=== PATIENT | male | born 1960 | race Caucasian/White ===

== ENCOUNTER 2021-10-22 12:37 | Emergency (ER) | payer BC ==
--- OUTSIDE RECORDS SUMMARY | 2021-10-22 12:42 | XMS REPORT | Continuity of Care Document ---
:1960 Author Organization [facility] t Address [address] [place] [address] Care Team Providers Name Role Phone Pcp, Does Not Have A Primary Care Physician HUNDL Attending Clinician Unavailable ROBBY TREJO Attending Clinician Unavailable Jerzy BATES, T Attending Clinician Unavailable Only, Db Test Attending Clinician Unavailable Anita ENZYME CHEMIST Attending Clinician Doctor Unassigned, Name Attending Clinician Unavailable LAB90 Attending Clinician Unavailable Robby Trejo MD Attending Clinician Ritesh LOOMIS Attending Clinician Payers Payer Name Policy Type Policy Number Effective Date Expiration Date S kati [facility] 2 [id number] 2018 00:00:00 Problems Condition Condition Condition Status Onset Resolution Last Treating Co mments Source Name Details Category Date Date Treatment Clinician Date No known No known Disease Kelse y active active Seybold problems problems Allergies, Adverse Reactions, Alerts Allergy Allergy Status Severity Reaction(s) Onset Inactive Treating Comm ents Source Name Type Date Date Clinician NO KNOWN Drug Active Univers ALLERGIE Class ity of [facility] Social History Social Habit Start Date Stop Date Quantity Comments Source Exposure to Not sure [facility]-CoV-[address] [facility] [place] [place] ([facility]) [place] Tobacco use and 2021-04-14 2021-04-14 User of smokeless Ke lsey Seybold exposure 00:00:00 00:00:00 tobacco Sex [birth year] At [birth year] Hilaria Dominguez ybold 00:00:00 00:00:00 Smoking Status Start Date Stop Date Source Unknown if ever smoked [facility] Never smoked tobacco Hilaria Cloud old Medications Ordered Filled Start Stop Current Ordering Indication Dosage Frequency Signature Comments Components Source Medication Medication Date Date Medication? Clinician (SIG) Name Name Tadalafil 2020-10 20mg Q24H Take 20 mg K elsey (Cialis) 20 1-17 11-17 by mouth Sey bold MG oral 08:28: 00:00 daily as Tablet 56 :00 needed for erectile dysfunctio n Sildenafil 2020-10 No 100mg Q24H Take 100 K elsey Citrate 1-17 11-17 mg by Seybold (Viagra) 08:28: 00:00 mouth 100 MG oral 56 :00 daily as Tablet needed for erectile dysfunctio n Sildenafil 2020-10 Yes [id number] 100mg Q24H Take 1 Hilaria Citrate 1-17 tablet Seybold (Viagra) 00:00: (100 mg 100 MG oral 00 total) by Tablet mouth daily as needed for erectile dysfunctio n Tadalafil 2020-10 Yes [id number] 20mg Q24H Take 1 K elsey (Cialis) 20 1-17 tablet (20 Se ybold MG oral 00:00: mg total) Tablet 00 by mouth daily as needed for erectile dysfunctio n Naproxen Yes 500mg Take 1 Hilaria 500 MG oral 7-27 tablet Seybol d Tablet 00:00: (500 mg 00 total) by mouth 2 times daily (with meals) HYDROcodone Yes [id number] 1{tbl} Q24H Take 1 Hilaria -Acetaminop 7-16 [id number] tablet by Clarence castillo hen 7.5-325 00:00: mouth MG oral 00 daily as Tablet needed for pain Zolpidem Yes [id number] 10mg QD Take 1 Ke lsey Tartrate 7-12 tablet (10 Seybo ld (Ambien) 10 00:00: mg total) MG oral 00 by mouth Tablet nightly as needed for sleep ondansetron Yes [id number] 4mg Take 1 Univers 4 mg 7- [id number] tablet by ity of disintegrat 00:00: mouth [place] ing tablet 00 every 4 Medica l (four) Branch hours as needed for Nausea and Vomiting (N/V). ondansetron Yes [id number] 4mg Take 1 Univers 4 mg 7- [id number] tablet by ity of disintegrat 00:00: mouth [place] ing tablet 00 every 4 Medica l (four) Branch hours as needed for Nausea and Vomiting (N/V). ondansetron Yes [id number] 4mg Take 1 Univers 4 mg - [id number] tablet by ity of disintegrat 00:00: mouth [place] ing tablet 00 every 4 Medica l (four) Branch hours as needed for Nausea and Vomiting (N/V). ondansetron Yes [id number] 4mg Take 1 Univers 4 mg 7- [id number] tablet by ity of disintegrat 00:00: mouth [place] ing tablet 00 every 4 Medica l (four) Branch hours as needed for Nausea and Vomiting (N/V). ondansetron Yes [id number] 4mg Take 1 Univers 4 mg 7- [id number] tablet by ity of disintegrat 00:00: mouth [place] ing tablet 00 every 4 Medica l (four) Branch hours as needed for Nausea and Vomiting (N/V). Ondansetron Yes 4mg Q4H Take 4 mg K elsey (ZOFRAN) 4 - by mouth Seybo ld MG oral 00:00: every 4 TABLET 00 hours as DISPERSIBLE needed Ondansetron Yes Hilaria (ZOFRAN) 4 7-07 Seybold MG oral 00:00: TABLET 00 DISPERSIBLE HYDROcodone 2020- No [id number] 1{tbl} Take 1 U nivers -acetaminop 04-0915 tablet by it y of hen (NORCO) 00:00: 04:59 [place] 7.5-325 mg 00 :00 every 8 Medica l per tablet (eight) Branch hours as needed for Pain for up to 7 days. Indication s: acute pain Immunizations Ordered Immunization Filled Immunization Date Status Commen ts Source Name Name Influenza Virus 2021-08-20 Completed Hilaria Se ybold Vaccine, age 6 months 00:00:00 and up Influenza Virus 2020-07-24 Completed Hilaria Dominguez ybold Vaccine, age 6 months 00:00:00 and up Pneumococcal Vaccine, 2020-07-24 Completed Marshall dominguezy Seybold Polysaccharide 00:00:00 Influenza Virus 2019-07-27 Completed Hilaria Dominguez ybold Vaccine, age 6 months 00:00:00 and up Tdap- (Boostrix, 2018-07-25 Completed Hilaria schneiderbold Adacel) 00:00:00 Influenza Virus 2018-07-25 Completed Hilaria Dominguez ybold Vaccine, age 6 months 00:00:00 and up Tdap- (Boostrix, 2017-07-20 Completed Hilaria schneiderbold Adacel) 00:00:00 Influenza Virus 2017-07-20 Completed Hilaria corea Vaccine, age 6 months 00:00:00 and up Vital Signs Vital Name Observation Time Observation Value Comments Source Systolic blood 2021-08-20 13:52:00 116 mm[Hg] Hilaria Seybold pressure Diastolic blood 2021-08-20 13:52:00 68 mm[Hg] Kelse y Seybold pressure Heart rate 2021-08-20 13:52:00 71 /min Hilaria schneiderboqiana Body temperature 2021-08-20 13:52:00 36.5 Tiffanie Rebeka ey Seybold Respiratory rate 2021-08-20 13:52:00 16 /min Rebeka schneider Seybold Body height 2021-08-20 13:52:00 185.4 cm Hilaria schneiderboqiana Body weight 2021-08-20 13:52:00 117.935 kg Hilaria schneiderbold BMI 2021-08-20 13:52:00 34.30 kg/m2 Hilaria schneiderbold Systolic blood 2021-04-09 13:32:00 152 mm[Hg] [facility] Diastolic blood 2021-04-09 13:32:00 86 mm[Hg] [facility] Heart rate 2021-04-09 13:32:00 63 /min [facility] Body temperature 2021-04-09 13:32:00 37 [facility]anie [facility] Respiratory rate 2021-04-09 13:32:00 14 /min [facility] Body height 2021-04-09 13:32:00 182.9 cm [facility] Body weight 2021-04-09 13:32:00 122.471 kg [facility] BMI 2021-04-09 13:32:00 36.62 kg/m2 [facility] Oxygen saturation in 2021-04-09 13:32:00 96 /min [facility] Arterial blood by [facility] Pulse oximetry [place] Procedures Procedure Date / Time Performed Performing Clinician Thanh e XR CHEST 2 VW 2021-04-09 13:56:29 Keith Awad [place] o f [facility] XR RIBS <3 VW RIGHT 2021-04-09 13:56:29 Keith Awad [facility] Encounters Start End Encounter Admission Attending Care Care Encounter Source Date/Time Date/Time Type Type Clinicians Facility Department ID 2021-10-22 2021-10-22 Outpatient HILARIA LARIOS [id number] [place] 11:00:00 11:00:00 RON parmar 2021-10-17 2021-10-17 Outpatient HILARIA TREJO [id number] [place] 00:00:00 00:00:00 FELICITAS parmar 2021-10-17 2021-10-17 Outpatient HILARIA TREJO [id number] [place] 00:00:00 00:00:00 FELICITAS parmar 2021-10-16 2021-10-16 Outpatient HILARIA TREJO [id number] [place] 00:00:00 00:00:00 FELICITAS parmar 2021-10-15 2021-10-15 Outpatient HILARIA TREJO [id number] [place] 00:00:00 00:00:00 FELICITAS parmar 2021-10-15 2021-10-15 Letter NICANOR Bertrand [id number] [facility] 00:00:00 00:00:00 (Out) Melba ORTA [id number] [facility] [id number] Jayden as [id number] [address] 2021-10-14 2021-10-14 Outpatient HILARIA TREJO [id number] [place] 00:00:00 00:00:00 FELICITAS parmar 2021-10-13 2021-10-13 Laboratory Only, Ang Db Test [facility] [id number] [facility] 15:15:00 15:30:00 Only [facility] [id number] ity of [place] [id number] Jayden as [place] [id number] [address] MEDICAL OFFICE BUILDING 2021-10-13 2021-10-13 Letter Doctor NICANOR [id number] Univers 00:00:00 00:00:00 (Out) Unassigned, YOU [id number] ity of [facility] [id number] Jayden as [phone] [address] 2021-10-13 2021-10-13 Letter Doctor NICANOR [id number] Univers 00:00:00 00:00:00 (Out) Unassigned, YOU [id number] ity of [facility] [id number] Jayden as [phone] [address] 2021-08-20 2021-08-20 Outpatient LAB90 HILARIA WEINER [id number] [place] 08:45:00 08:45:00 Pedro Luisol ghulam 2021-08-20 2021-08-20 Office Alfredito Trejo [id number] [place] 07:51:44 08:21:44 Visit Felicitas Light [id number] Se nahomy Duobn [id number] 2021-08-15 2021-08-15 Outpatient HILARIA TREJO [id number] [place] 09:00:00 09:00:00 FELICITAS Cloudol ghulam 2021-04-28 2021-04-28 Outpatient HILARIA TREJO [id number] [place] 00:00:00 00:00:00 FELICITAS Dominguezybol hgulam 2021-04-24 2021-04-24 Outpatient MAYA, HILARIA WEINER [id number] [place] 00:00:00 00:00:00 FELICITAS Clark ghulam 2021-04-17 2021-04-17 Outpatient MAYA, HILARIA WEINER [id number] [place] 00:00:00 00:00:00 FELICITAS Clark ghulam 2021-04-14 2021-04-14 Outpatient HILARIA TREJO [id number] [place] 13:45:00 13:45:00 FELICITAS Clark ghulam 2021-04-09 2021-04-09 Emergency Awad, [facility] [id number] Univers 08:33:00 10:01:00 Keith Floreston [id number] i ty of [place] [id number] [facility] [id number] Medi makenzie 084 Branch 2021-04-09 2021-04-09 Emergency X [facility] ERT [id number] Univers 08:27:00 08:27:00 ity of [facility] Results Test Description Test Time Test Comments Results Result Sour e Comments XR RIBS <3 VW Acute minimally Unive rsity of RIGHT [address] [facility] [place] 14:21:13 of lateral right Branch rib 6. No pneumothorax.EXAM: XR CHEST 2 VW, XR RIBS <3 VW RIGHT COMPARISON: None available. HISTORY: rib pain FINDINGS: Support devices: None. Lungs/pleura: ?The lungs are clear. No pleural effusion or pneumothorax isidentified. Heart/Mediastinum: The cardiac silhouette is normal in size. Trachea isnear midline. Bones: Acute minimally displaced fracture of lateral right rib 6. [facility], Radiant Results Inft User - 04/09/2021 9:22 AM CDT EXAM: XR CHEST 2 VW, XR RIBS <3 VW RIGHTCOMPARISON: None available.HISTORY: rib pain FINDINGS:Support devices: None.Lungs/pleura: The lungs are clear. No pleural effusion or pneumothorax isidentified.Heart /Mediastinum: The cardiac silhouette is normal in size. Trachea isnear midline.Bones: Acute minimally displaced fracture of lateral right rib 6.IMPRESSIONAcute minimally displaced fracture of lateral right rib 6. No pneumothorax. XR CHEST 2 VW Acute minimally Unive rsity of [address] [facility] [place] 14:21:13 of lateral right Branch rib 6. No pneumothorax.EXAM: XR CHEST 2 VW, XR RIBS <3 VW RIGHT COMPARISON: None available. HISTORY: rib pain FINDINGS: Support devices: None. Lungs/pleura: ?The lungs are clear. No pleural effusion or pneumothorax isidentified. Heart/Mediastinum: The cardiac silhouette is normal in size. Trachea isnear midline. Bones: Acute minimally displaced fracture of lateral right rib 6. [facility], Radiant Results Inft User - 04/09/2021 9:22 AM CDT EXAM: XR CHEST 2 VW, XR RIBS <3 VW RIGHTCOMPARISON: None available.HISTORY: rib pain FINDINGS:Support devices: None.Lungs/pleura: The lungs are clear. No pleural effusion or pneumothorax isidentified.Heart /Mediastinum: The cardiac silhouette is normal in size. Trachea isnear midline.Bones: Acute minimally displaced fracture of lateral right rib 6.IMPRESSIONAcute minimally displaced fracture of lateral right rib 6. No pneumothorax.
[2021-10-22 14:38] LABS: Urine Blood Negative (Negative); Urine Glucose Negative (Negative); Urine Protein Negative (Negative)
[2021-10-22 14:46] LABS: Absolute Lymphocytes (CBC) 0.7 K/uL (0.7-4.9); Hematocrit 46.9 % (39.6-49.0); Lymphocytes % 15.9 % (15.3-44.8); MPV 7.4 fL (7.6-11.3); RBC Red Blood Cell Count 5.17 M/uL (4.33-5.43)
[2021-10-22 14:52] LABS: Protime INR 1.05
[2021-10-22 14:58] LABS: Urine Bacteria <20 /HPF (NONE SEEN); Urine RBC <5 /HPF (NONE SEEN)
--- NOTE | 2021-10-22 14:59 | RAD REPORT ---
EXAM DESCRIPTION: RAD - Chest Single View - 10/22/2021 2:39 pm CLINICAL HISTORY: SOB Chest pain. COMPARISON: Chest Pa And Lat (2 Views) dated 01/31/2016; CHEST PA AND LAT 2 VIEW dated 01/02/2014 FINDINGS: Portable technique limits examination quality. Mild to moderate bilateral interstitial lung opacities are present likely representing a viral infect ion. The heart is normal in size. No displaced fractures.
[2021-10-22 15:09] LABS: ALT/SGPT 116 U/L (12-78); AST/SGOT 62 U/L (15-37); Albumin 2.7 g/dL (3.4-5.0); Alkaline Phosphatase 140 U/L (45-117); BUN Blood Urea Nitrogen 7 mg/dL (7-18); Bicarbonate 28 mmol/L (21-32); Bilirubin Direct 0.3 mg/dL (0-0.2); Bilirubin Total 0.7 mg/dL (0.2-1.0); Glucose Level 121 mg/dL (74-106); Magnesium 2.2 mg/dL (1.8-2.4); NT PRO-BNP 90 pg/mL (<125); Potassium 3.5 mmol/L (3.5-5.1); Protein, Total 6.7 g/dL (6.4-8.2); Sodium Level 135 mmol/L (136-145)
--- NOTE | 2021-10-22 16:20 | RAD REPORT ---
EXAM DESCRIPTION: CT - Chest For Pe Angio - 10/22/2021 3:57 pm CLINICAL HISTORY: Chest pain. SOB COMPARISON: No comparisons TECHNIQUE: CT angiogram of the pulmonary arteries was performed with MIP. All CT scans are performed using dose optimization technique as appropriate and may include automated exposure control or mA/KV adjustment according to patient size. FINDINGS: No evidence of pulmonary thromboembolism. No acute aortic finding demonstrated. Ground-glass opacity is present in both lungs greatest in the periphery and lower lobes likely repres enting viral infection. No significant pericardial or pleural fluid. Old right lateral rib fractures are present. IMPRESSION: No evidence of pulmonary thromboembolism. Mild ground-glass opacities in the periphery of both lungs and greatest in the lower lobes likely rep resents a viral infection.
--- NOTE | 2021-10-22 16:50 | EDPHYS ---
Physician Documentation [facility] Name: Wilder Chavez Age: 60 yrs Sex: Male : 1960 Arrival Date: 10/22/2021 Time: 12:41 Bed 20 Private MD: ED Physician Chance Garcia HPI: 10/22 14:30 This 60 yrs old Male presents to ER via Wheelchair with complaints of Covid + Sob. cp 14:30 The patient has shortness of breath with light activity. cp 14:30 Onset: The symptoms/episode began/occurred gradually. Duration: The symptoms are cp continuous, and are steadily getting worse. Associated signs and symptoms: Pertinent positives: cough. Severity of symptoms: in the emergency department the symptoms are unchanged despite home interventions. Patient reports testing positive for COVID-19 on 10-13-2021. Historical: - Allergies: 12:52 No Known Allergies; jd3 - Home Meds: 12:52 None [Active]; jd3 - PMHx: 12:52 None; jd3 - PSHx: 12:52 knee resplacements; necks; jd3 - Immunization history:: Adult Immunizations up to date, Client reports having NOT received the Covid vaccine. Flu vaccine is up to date. - Social history:: Smoking status: Patient denies any tobacco usage or history of. ROS: 14:35 Constitutional: Negative for body aches, chills, fever, poor PO intake. cp 14:35 Eyes: Negative for injury, pain, redness, and discharge. cp 14:35 ENT: Negative for drainage from ear(s), ear pain, sore throat, difficulty swallowing, difficulty handling secretions. 14:35 Cardiovascular: Negative for chest pain, edema, palpitations. 14:35 Respiratory: Positive for cough, "sounds productive", shortness of breath, on exertion. Negative for wheezing. 14:35 Abdomen/GI: Negative for abdominal pain, nausea, vomiting, and diarrhea. 14:35 : Negative for urinary symptoms, difficulty urinating. 14:35 Neuro: Negative for altered mental status, dizziness, headache, weakness. 14:35 All other systems are negative. Exam: 14:40 Constitutional: The patient appears in no acute distress, alert, awake, comfortable, cp non-diaphoretic, well developed, well nourished. 14:40 Head/Face: Normocephalic, atraumatic. cp 14:40 Eyes: Periorbital structures: appear normal, Conjunctiva: normal, no exudate, no injection, Sclera: no appreciated abnormality, Lids and lashes: appear normal, bilaterally. 14:40 ENT: External ear(s): are unremarkable, Nose: is normal, Mouth: Lips: moist, Oral mucosa: moist, Posterior pharynx: Airway: no evidence of obstruction, patent. 14:40 Neck: ROM/movement: is normal, is supple, without pain, no range of motions limitations. 14:40 Chest/axilla: Inspection: normal, Palpation: is normal, no crepitus, no tenderness. 14:40 Cardiovascular: Rate: normal, Rhythm: regular, Edema: is not appreciated, JVD: is not appreciated. 14:40 Respiratory: the patient does not display signs of respiratory distress, Respirations: normal, no use of accessory muscles, no retractions, labored breathing, is not present, Breath sounds: are clear throughout, no decreased breath sounds, no stridor, no wheezing. 14:40 Abdomen/GI: Inspection: abdomen appears normal, Palpation: abdomen is soft and non-tender, in all quadrants. 14:40 Back: pain, is absent, ROM is normal. 14:40 Skin: no rash present. 14:40 Neuro: Orientation: to person, place \\T\\ time. Mentation: is normal, Motor: moves all fours, strength is normal, Sensation: is normal. 14:55 ECG was reviewed by the Attending Physician. cp Vital Signs: 12:52 BP 112 / 68; Pulse 79; Resp 18 S; Temp 97.6(TE); Pulse Ox 95% on R/A; Weight 117.93 kg jd3 (R); Height 6 ft. 0 in. (182.88 cm) (R); Pain 0/10; 14:53 BP 132 / 76; Pulse 82; Resp 18; Pulse Ox 96% on R/A; wilson 15:19 BP 124 / 73; Pulse 86; Resp 18; Pulse Ox 96% on R/A; wilson 12:52 Body Mass Index 35.26 (117.93 kg, 182.88 cm) jd3 MDM: 14:07 Patient medically screened. cp 15:00 Differential diagnosis: CHF exacerbation, Chronic Obstructive Pulmonary Disease cp pneumonia, pulmonary edema, Pulmonary Embolism Sepsis Unstable Angina. 16:48 Data reviewed: vital signs, nurses notes, lab test result(s), EKG, radiologic studies, cp CT scan, plain films. 16:48 Data interpreted: vascular surgeon: rate is 86 beats/min, rhythm is normal sinus rhythm, cp Pulse oximetry: on room air is 96 %. Interpretation: acceptable, Plan: O2 by NC applied. Test interpretation: by ED physician or midlevel provider: ECG, plain radiologic studies. ED course: VSS. Patient appears non-toxic and no signs of respiratory distress. Will discharge to home for continued monitoring. 10/22 14:25 Order name: Basic Metabolic Panel; Complete Time: 15:36 cp 10/22 15:36 Interpretation: Normal except: NA 135; GLUC 121; CA 8.4. cp 10/22 14:25 Order name: CBC with Diff; Complete Time: 15:36 cp 10/22 15:36 Interpretation: Normal except: MPV 7.4. cp 10/22 14:25 Order name: LFT's; Complete Time: 15:36 cp 10/22 15:37 Interpretation: Normal except: AST 62; ALT 116; ALK 140; BILID 0.3; ALB 2.7; GLOB 4.0; cp A/G 0.7. 10/22 14:25 Order name: Magnesium; Complete Time: 15:36 cp 10/22 14:25 Order name: NT PRO-BNP; Complete Time: 15:36 cp 10/22 14:25 Order name: PT-INR; Complete Time: 15:36 cp 10/22 14:25 Order name: Troponin HS; Complete Time: 15:36 cp 10/22 14:25 Order name: XRAY Chest (1 view); Complete Time: 15:36 cp 10/22 14:25 Order name: Urine Microscopic Only; Complete Time: 15:36 cp 10/22 15:38 Interpretation: Normal except: SQEPI 10-20. cp 10/22 14:38 Order name: Urine Dipstick-Ancillary; Complete Time: 15:36 EDMS 10/22 15:39 Order name: CT Chest For PE Angio; Complete Time: 16:23 cp 10/22 14:25 Order name: EKG; Complete Time: 14:26 cp 10/22 14:25 Order name: Cardiac monitoring; Complete Time: 14:57 cp 10/22 14:25 Order name: EKG - Nurse/Tech; Complete Time: 14:57 cp 10/22 14:25 Order name: IV Saline Lock; Complete Time: 14:57 cp 10/22 14:25 Order name: Labs collected and sent; Complete Time: 14:57 cp 10/22 14:25 Order name: O2 Per Protocol; Complete Time: 14:58 cp 10/22 14:25 Order name: O2 Sat Monitoring; Complete Time: 14:58 cp 10/22 14:25 Order name: Urine Dipstick-Ancillary (obtain specimen); Complete Time: 14:39 cp EC:55 Rate is 62 beats/min. Rhythm is regular. GA interval is normal. QRS interval is normal. cp QT interval is normal. T waves are Inverted in lead aVR. Interpreted by me. Reviewed by me. Administered Medications: 17:30 Drug: SOLU-Medrol (methylPrednisoLONE) 125 mg Route: IVP; Site: right antecubital; wilson 17:41 Follow up: Response: No adverse reaction wilson 17:30 Drug: Albuterol HFA Inhaler 2 puffs Route: Inhalation; wilson 17:30 Drug: Zithromax (azithromycin) 500 mg Route: PO; wilson 17:41 Follow up: Response: No adverse reaction wilson Disposition: 19:15 Co-signature as Attending Physician, Chance Garcia MD I agree with the assessment and kdr plan of care. Disposition Summary: 10/22/21 16:49 Discharge Ordered Location: Home cp Problem: new cp Symptoms: have improved cp Condition: Stable cp Diagnosis - Pneumonia due to SARS-associated coronavirus cp Followup: cp - With: Private Physician - When: 2 - 3 days - Reason: Worsening of condition Discharge Instructions: - Discharge Summary Sheet cp - Aspirin and Your Heart cp - COVID-19 cp - COVID-19 Frequently Asked Questions cp - 10 Things You Can Do to Manage Your COVID-19 Symptoms at Home - [facility] cp Forms: - Medication Reconciliation Form cp - Thank You Letter cp - Antibiotic Education cp - Prescription Opioid Use cp Prescriptions: - albuterol sulfate 90 mcg/actuation Inhalation HFA aerosol inhaler - inhale 2 puff by INHALATION route every 4-6 hours; 1 Inhaler; Refills: 0, cp Product Selection Permitted - Zithromax Z-Miki 250 mg Oral Tablet - take 1 tablet by ORAL route as directed for 5 days Day 1 - take two (2) tablets cp one time. Day 2, 3, 4 , 5 take one (1) tablet once daily.; 6 tablet; Refills: 0, Product Selection Permitted - Prednisone 20 mg Oral Tablet - take 2 tablets by ORAL route once daily for 5 days then take 1 tablet daily for cp 3 days and the 1/2 tablet daily for 2 days; 14 tablet; Refills: 0, Product Selection Permitted Signatures: Dispatcher [employer] EDNJ Chance Garcia MD MD kdr Page, Corey, PA PA cp Davies, Jonathon, RN RN jFelicia Vargas RN RN wilson Corrections: (The following items were deleted from the chart) 12:52 12:52 PMHx: None; jd3 jd3 15:36 15:36 Normal except: NA 135; GLUC 121. cp cp
--- NOTE | 2021-10-22 16:50 | ER ---
Nurse's Notes [facility] Name: Wildre Chavez Age: 60 yrs Sex: Male : 1960 Arrival Date: 10/22/2021 Time: 12:41 Bed 20 Private MD: Diagnosis: Pneumonia due to SARS-associated coronavirus Presentation: 10/22 12:50 Chief complaint: Patient states: "I tested + for COVID on the 13 of October and I jd3 feel like I am just not getting any better. I did an Evist with my pcp and they said I had low O2 and sent me here.". Coronavirus screen: At this time, the client does not indicate any symptoms associated with coronavirus-19. Ebola Screen: Patient negative for fever greater than or equal to 101.5 degrees Fahrenheit, and additional compatible Ebola Virus Disease symptoms. Initial Sepsis Screen: Does the patient meet any 2 criteria? No. Patient's initial sepsis screen is negative. Does the patient have a suspected source of infection? No. Patient's initial sepsis screen is negative. Risk Assessment: Do you want to hurt yourself or someone else? Patient reports no desire to harm self or others. Onset of symptoms was October 22, 2021. 12:50 Method Of Arrival: Wheelchair jd3 12:50 Acuity: JESSA 3 jd3 Triage Assessment: 14:27 General: Appears in no apparent distress. Behavior is calm, cooperative. Pain: wilson Complains of pain in chest. Historical: - Allergies: 12:52 No Known Allergies; jd3 - Home Meds: 12:52 None [Active]; jd3 - PMHx: 12:52 None; jd3 - PSHx: 12:52 knee resplacements; necks; jd3 - Immunization history:: Adult Immunizations up to date, Client reports having NOT received the Covid vaccine. Flu vaccine is up to date. - Social history:: Smoking status: Patient denies any tobacco usage or history of. Screenin:26 Abuse screen: Denies threats or abuse. Denies injuries from another. Nutritional wilson screening: No deficits noted. Tuberculosis screening: No symptoms or risk factors identified. Fall Risk None identified. Assessment: 14:02 Pain: Denies pain. wilson 14:26 Cardiovascular: Reports chest pain, shortness of breath, Chest pain. Respiratory: wilson Reports shortness of breath Breath sounds are diminished bilaterally. Vital Signs: 12:52 BP 112 / 68; Pulse 79; Resp 18 S; Temp 97.6(TE); Pulse Ox 95% on R/A; Weight 117.93 kg jd3 (R); Height 6 ft. 0 in. (182.88 cm) (R); Pain 0/10; 14:53 BP 132 / 76; Pulse 82; Resp 18; Pulse Ox 96% on R/A; wilson 15:19 BP 124 / 73; Pulse 86; Resp 18; Pulse Ox 96% on R/A; wilson 12:52 Body Mass Index 35.26 (117.93 kg, 182.88 cm) jd3 ED Course: 12:41 Patient arrived in ED. ds1 12:51 Triage completed. jd3 12:53 Arm band placed on. jd3 14:00 Mello Peng PA is PHCP. cp 14:00 Chance Garcia MD is Attending Physician. cp 14:26 Patient has correct armband on for positive identification. Bed in low position. wilson 14:26 No provider procedures requiring assistance completed. wilson 14:39 XRAY Chest (1 view) In Process Unspecified. EDMS 14:39 Urine collected: clean catch specimen, narciso colored. gd 14:58 Basic Metabolic Panel Sent. wilson 14:58 Magnesium Sent. wilson 14:58 LFT's Sent. wilson 14:58 NT PRO-BNP Sent. wilson 14:58 Troponin HS Sent. wilson 15:58 CT Chest For PE Angio In Process Unspecified. EDMS 17:41 IV discontinued, intact, Pressure dressing applied. wilson Administered Medications: 17:30 Drug: SOLU-Medrol (methylPrednisoLONE) 125 mg Route: IVP; Site: right antecubital; wilson 17:41 Follow up: Response: No adverse reaction wilson 17:30 Drug: Albuterol HFA Inhaler 2 puffs Route: Inhalation; wilson 17:30 Drug: Zithromax (azithromycin) 500 mg Route: PO; wilson 17:41 Follow up: Response: No adverse reaction wilson Outcome: 16:49 Discharge ordered by . cp 17:41 Discharged to home wilson 17:41 Condition: good 17:41 Discharge instructions given to patient, Prescriptions given X 3. 17:42 Patient left the ED. wilson Signatures: Dispatcher [employer] EDHI Geraldine Lagos ds1 Mello Peng PA PA cp Davies, Jonathon, RN RN jd3 Evangelista Zhu Heather, RN RN wilson Corrections: (The following items were deleted from the chart) :52 12:52 PMHx: None; jd3 jd3
[2021-10-22] MEDS ORDERED: ALBUTEROL INHALER 60 PUFF/8 GM IH ONE (17:23)
[2021-10-22] MEDS ORDERED: AZITHROMYCIN 250 MG TAB ONE (17:23)
[2021-10-22] MEDS ORDERED: METHYLPREDNISOLONE 125 MG INJ ONE (17:23)
[2021-10-22 17:47] VITALS: TEMP 97.6
[2021-10-22 17:49] VITALS: O2SAT 96
[2021-10-22 17:50] VITALS: BP 124/73
== END 2021-10-22 17:42 | disposition home or self-care (01) ==
LOC: ER 12:37
DX: U07.1 COVID-19 (principal); J12.82 Pneumonia due to coronavirus disease 2019
CPT/HCPCS: 93005; 85025; 80048; 36415; 83735; 85610; 80076; 84484; 83880; 71275; 71045; 96374; 99284; Q9967; J2930; 81003; 81015